=== PATIENT | male | born 1965 | race Caucasian/White ===

== ENCOUNTER 2018-08-13 09:22 | Emergency (ER) | payer MEDICAID ==
[2018-08-13] MEDS: DIPHTH/TET/ACEL PERTUSS (ADULT) 0.5 ML VIAL IM* (10:13)
[2018-08-13] MEDS: IBUPROFEN 800 MG TAB PO (10:24)
== END 2018-08-13 10:51 | disposition home or self-care (01) ==
LOC: FTE 09:22
DX: S61.412A Laceration without foreign body of left hand, initial encounter (principal); F17.210 Nicotine dependence, cigarettes, uncomplicated; W26.0XXA Contact with knife, initial encounter; Y92.9 Unspecified place or not applicable; Z21 Asymptomatic human immunodeficiency virus [HIV] infection status; Z23 Encounter for immunization
CPT/HCPCS: 90471; 90715; 99283-25